=== PATIENT | female | born 1965 | race African-American/Black ===

== ENCOUNTER 2019-02-16 13:16 | Emergency (ER) | payer MEDICARE, MEDICAID ==
[~2019-02-16] VITALS: Ht 165.1 cm; Wt 95.0 kg
[2019-02-16 13:22] VITALS: BP 155/94
== END 2019-02-16 16:49 | disposition left against medical advice (07) ==
LOC: ER 13:16
DX: R45.851 Suicidal ideations (principal); F41.9 Anxiety disorder, unspecified; E11.9 Type 2 diabetes mellitus without complications; I10 Essential (primary) hypertension
CPT/HCPCS: 99284